=== PATIENT | female | born 1990 | race American Indian/Alaskan Native ===

== ENCOUNTER 2016-12-28 20:00 | Emergency (ER) | payer SELFPAY ==
[2016-12-28 20:32] VITALS: BP 107/64
[2016-12-28 21:13] LABS: Basophils % (Auto) 0.8 % (0.0-1.8); Eosinophils % (Auto) 2.2 % (0.0-4.3); Hematocrit 38.6 % (30.3-42.9); Hemoglobin 12.8 gm/dl (10.1-14.3); Mean Corpuscular HGB Conc 33 % (30-34); Mean Corpuscular Hemoglobin 28 pg (28-32); Mean Corpuscular Volume 83 fl (79-97); Platelet Count 314 K/mm3 (140-440); Red Blood Count 4.64 M/mm3 (3.65-5.03); Red Cell Distribution Width 14.2 % (13.2-15.2); White Blood Count 6.1 K/mm3 (4.5-11.0)
[2016-12-28 21:28] LABS: Alanine Aminotransferase 9 units/L (7-56); Albumin 4.4 g/dL (3.9-5); Albumin/Globulin Ratio 1.7 %; Alkaline Phosphatase 62 units/L (35-129); Anion Gap 18 mmol/L; BUN/Creatinine Ratio 18.57; Bilirubin,Total 0.2 mg/dL (0.1-1.2); Blood Urea Nitrogen 13 mg/dL (7-17); Calcium 9.5 mg/dL (8.4-10.2); Carbon Dioxide 25 mmol/L (22-30); Chloride 104.8 mmol/L (98-107); Glucose 92 mg/dL (65-100); Lipase 29 units/L (13-60); Potassium 4.1 mmol/L (3.6-5.0); Sodium 144 mmol/L (137-145)
[2016-12-28 23:23] LABS: Bilirubin,Urine NEG (Negative); Blood,Urine NEG (Negative); Ketones,Urine TR mg/dL (Negative); Leukocyte Esterase,Urine SM (Negative); Mucus,Urine 3+ /HPF; Nitrite,Urine NEG (Negative); Protein,Urine <15 mg/dL mg/dL (Negative); Urobilinogen,Urine < 2.0 mg/dL (<2.0)
--- NOTE | 2016-12-29 19:31 | ED Elopement Review ---
ED Pt Elopement review - Results review Lab results: Laboratory Tests 12/28/16 12/28/16 12/28/16 20:44 20:44 22:17 WBC 6.1 RBC 4.64 Hgb 12.8 Hct 38.6 MCV 83 MCH 28 MCHC 33 RDW 14.2 Plt Count 314 Lymph % (Auto) 43.4 H Simpson % (Auto) 8.8 H Eos % (Auto) 2.2 Baso % (Auto) 0.8 Lymph # 2.6 Simpson # 0.5 Eos # 0.1 Baso # 0.0 Seg Neutrophils % 44.8 Seg Neutrophils # 2.7 Sodium 144 Potassium 4.1 Chloride 104.8 Carbon Dioxide 25 Anion Gap 18 BUN 13 Creatinine 0.7 Estimated GFR > 60 BUN/Creatinine Ratio 18.57 Glucose 92 Calcium 9.5 Total Bilirubin 0.2 AST 15 ALT 9 Alkaline Phosphatase 62 Total Protein 7.0 Albumin 4.4 Albumin/Globulin Ratio 1.7 Lipase 29 Urine Color Yellow Urine Turbidity Cloudy Urine pH 5.0 Ur Specific [place] 1.030 Urine Protein <15 mg/dl Urine Glucose (UA) Neg Urine Ketones Tr Urine Blood Neg Urine Nitrite Neg Urine Bilirubin Neg Urine Urobilinogen < 2.0 Ur Leukocyte Esterase Sm Urine WBC (Auto) 10.0 H Urine RBC (Auto) 2.0 U Epithel Cells (Auto) 20.0 H Urine Mucus 3+ Urine HCG, Qual Negative - Call Back decision Pt Call Back Decision: No action required
== END 2016-12-29 05:40 | disposition left against medical advice (07) ==
LOC: ED 20:00
DX: R10.32 Left lower quadrant pain (principal); Z53.21 Procedure and treatment not carried out due to patient leaving prior to being seen by health care provider
CPT/HCPCS: 36415; 80053; 81001; 81025; 83690; 85025

== ENCOUNTER 2016-12-29 20:04 | Emergency (ER) | payer SELFPAY ==
[2016-12-29 20:15] VITALS: BP 103/62
== END 2016-12-29 20:50 | disposition left against medical advice (07) ==
LOC: ED 20:04
DX: R10.9 Unspecified abdominal pain (principal); Z53.21 Procedure and treatment not carried out due to patient leaving prior to being seen by health care provider

== ENCOUNTER 2017-05-31 07:02 | Emergency (ER) | payer SELFPAY ==
[2017-05-31] MEDS ORDERED: BOOSTRIX IM ONE (08:32)
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
[2017-05-31 09:47] LABS: Urine Drugs of Abuse Note Disclamer
[2017-05-31] MEDS ORDERED: ISOPTO TEARS 0.5% OU ONE (11:25)
[2017-05-31] MEDS ORDERED: ANCEF IM ONE (11:45)
[2017-05-31 13:03] VITALS: BP 114/65
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
== END 2017-05-31 13:14 | disposition other institution (70) ==
LOC: ED 07:02
DX: S01.111A Laceration without foreign body of right eyelid and periocular area, initial encounter (principal); W22.8XXA Striking against or struck by other objects, initial encounter; Y93.9 Activity, unspecified; Y92.9 Unspecified place or not applicable; Y99.9 Unspecified external cause status
CPT/HCPCS: 36415; 70486; 73140; 80307; 84703; 90471; 90715; 96372; 99284; G0480; J0690; 80320

== ENCOUNTER 2017-07-13 16:12 | Emergency (ER) | payer SELFPAY ==
[2017-07-13 16:31] VITALS: BP 112/66
[2017-07-13 17:02] LABS: Basophils % (Auto) 0.9 % (0.0-1.8); Eosinophils % (Auto) 1.7 % (0.0-4.3); Hematocrit 38.6 % (30.3-42.9); Hemoglobin 12.5 gm/dl (10.1-14.3); Mean Corpuscular HGB Conc 32 % (30-34); Mean Corpuscular Hemoglobin 27 pg (28-32); Mean Corpuscular Volume 85 fl (79-97); Platelet Count 376 K/mm3 (140-440); Red Blood Count 4.56 M/mm3 (3.65-5.03); Red Cell Distribution Width 14.5 % (13.2-15.2); White Blood Count 7.1 K/mm3 (4.5-11.0)
[2017-07-13 17:18] LABS: Alanine Aminotransferase 12 units/L (7-56); Albumin 4.2 g/dL (3.9-5); Albumin/Globulin Ratio 1.5 %; Alkaline Phosphatase 49 units/L (35-129); Anion Gap 17 mmol/L; Blood Urea Nitrogen 10 mg/dL (7-17); Calcium 8.8 mg/dL (8.4-10.2); Carbon Dioxide 26 mmol/L (22-30); Chloride 101.1 mmol/L (98-107); Glucose 95 mg/dL (65-100); Lipase 25 units/L (13-60); Potassium 3.9 mmol/L (3.6-5.0); Sodium 140 mmol/L (137-145)
[2017-07-13 18:07] LABS: Bilirubin,Urine NEG (Negative); Blood,Urine LG (Negative); Ketones,Urine NEG (Negative); Leukocyte Esterase,Urine TR (Negative); Mucus,Urine 3+ /HPF; Nitrite,Urine NEG (Negative); Urobilinogen,Urine < 2.0 mg/dL (<2.0)
== END 2017-07-13 20:35 | disposition left against medical advice (07) ==
LOC: ED 16:12
DX: M54.5 Low back pain (principal); Z53.21 Procedure and treatment not carried out due to patient leaving prior to being seen by health care provider
CPT/HCPCS: 36415; 80053; 81001; 83690; 85025

== ENCOUNTER 2018-04-23 14:28 | Emergency (ER) | payer SELFPAY ==
[2018-04-23 14:36] VITALS: BP 105/70
[2018-04-23 15:22] LABS: Bacteria,Urine 1+ /HPF (Negative); Bilirubin,Urine NEG (Negative); Blood,Urine NEG (Negative); Color,Urine Yellow (Yellow); Mucus,Urine 1+ /HPF; Protein,Urine <15 mg/dL mg/dL (Negative); Urobilinogen,Urine < 2.0 mg/dL (<2.0)
[2018-04-23 15:33] LABS: HCG Qualitative,Urine Negative (Negative)
--- NOTE | 2018-04-23 15:49 | Emergency Department Report ---
ED Female HPI - General Chief complaint: Urogenital-Female Stated complaint: ABD PAIN, VOMITTING AND BURNING ITCHING IN VAGINA Time Seen by Provider: 04/23/18 15:38 Source: patient Mode of arrival: Ambulatory Limitations: No Limitations - History of Present Illness Complaint: dysuria, pelvic pain -: week(s) Radiation: suprapubic Quality: burning Improves with: none Worsens with: urination Associated Symptoms: denies: vaginal discharge, vaginal bleeding - Related Data Home Medications Medication Instructions Recorded Confirmed Last Taken No Known Home Medications [No 05/31/17 05/31/17 Unknown Reported Home Medications] Allergies Allergy/AdvReac Type Severity Reaction Status Date / Time No Known Allergies Allergy Verified 05/31/17 11:26 ED Review of Systems ROS: Stated complaint: ABD PAIN, VOMITTING AND BURNING ITCHING IN VAGINA Other details as noted in HPI Comment: All other systems reviewed and negative Constitutional: denies: chills, fever Cardiovascular: denies: chest pain, palpitations Genitourinary: urgency, dysuria, frequency. denies: discharge Neurological: denies: headache, weakness ED Past Medical Hx - Past Medical History Hx Hypertension: No Hx Diabetes: No Hx Deep Vein Thrombosis: No Hx Renal Disease: No Hx Sickle Cell Disease: No Hx Seizures: No Hx Asthma: No Hx HIV: No Additional medical history: endometriosis - Surgical History Past Surgical History?: No - Social History Smoking Status: Never Smoker Substance Use Type: None - Medications Home Medications: Home Medications Medication Instructions Recorded Confirmed Last Taken Type No Known Home Medications [No 05/31/17 05/31/17 Unknown History Reported Home Medications] ED Physical Exam - General Limitations: No Limitations General appearance: alert, in no apparent distress - Head Head exam: Present: atraumatic, normocephalic, normal inspection - ENT ENT exam: Present: normal exam, mucous membranes moist - Neck Neck exam: Present: normal inspection, full ROM. Absent: tenderness, meningismus, lymphadenopathy, thyromegaly - Respiratory Respiratory exam: Present: normal lung sounds bilaterally - Cardiovascular Cardiovascular Exam: Present: regular rate, normal rhythm, normal heart sounds - GI/Abdominal GI/Abdominal exam: Present: soft, normal bowel sounds. Absent: distended, tenderness, guarding, rebound, rigid, mass, bruit, pulsatile mass - Extremities Exam Extremities exam: Present: normal inspection, full ROM, normal capillary refill - Neurological Exam Neurological exam: Present: alert, oriented X3, CN II-XII intact, normal gait - Skin Skin exam: Present: warm, intact, normal color ED Course Vital Signs 04/23/18 14:32 Temperature 98.5 F Pulse Rate 104 H Respiratory 16 Rate Blood Pressure 105/70 O2 Sat by Pulse 99 Oximetry Critical care attestation.: If time is entered above; I have spent that time in minutes in the direct care of this critically ill patient, excluding procedure time. ED Disposition Clinical Impression: Dysuria Disposition: DC-01 TO HOME OR SELFCARE Is pt being admited?: No Condition: Stable Instructions: Urinary Tract Infection in Women (ED), Dysuria (ED) Referrals: PRIMARY CARE, [Primary Care Provider] - 3-5 Days
== END 2018-04-23 16:04 | disposition home or self-care (01) ==
LOC: ED 14:28
DX: R30.0 Dysuria (principal); R10.2 Pelvic and perineal pain
CPT/HCPCS: 81001; 81025; 99283

== ENCOUNTER 2019-05-05 19:45 | Emergency (ER) | payer MEDICAID ==
[2019-05-05 20:46] LABS: Basophils % (Auto) 0.6 % (0.0-1.8); Eosinophils # (Auto) 0.1 K/mm3 (0.0-0.4); Hematocrit 35.9 % (30.3-42.9); Hemoglobin 12.3 gm/dl (10.1-14.3); Lymphocytes # (Auto) 2.5 K/mm3 (1.2-5.4); Lymphocytes % (Auto) 39.5 % (13.4-35.0); Mean Corpuscular HGB Conc 34 % (30-34); Mean Corpuscular Volume 82 fl (79-97); Monocytes # (Auto) 0.7 K/mm3 (0.0-0.8); Platelet Count 398 K/mm3 (140-440); Red Blood Count 4.36 M/mm3 (3.65-5.03); Red Cell Distribution Width 13.6 % (13.2-15.2)
[2019-05-05 20:54] LABS: Bilirubin,Urine NEG (Negative); Blood,Urine SM (Negative); Color,Urine Yellow (Yellow); Protein,Urine <15 mg/dL mg/dL (Negative); RBC,Urine < 1.0 /HPF (0.0-6.0); Urobilinogen,Urine < 2.0 mg/dL (<2.0); WBC,Urine < 1.0 /HPF (0.0-6.0)
--- NOTE | 2019-05-05 23:09 | Ultrasound Report ---
ULTRASOUND OBSTETRIC INDICATION: Vaginal bleeding. Clinical gestational age of 9 weeks, 3 days. TECHNIQUE: Transabdominal and Transvaginal. COMPARISON: None available. FINDINGS: GESTATIONAL SAC: Well-defined oval shape and intrauterine in location. YOLK SAC: No significant abnormality. EMBRYO/FETUS: No significant abnormality. - [place]-Rump Length = 2.69 cm = 9 weeks, 3 day(s). - Heart Rate = 179 beats per minute. ADNEXA: The right ovary is normal in size and appearance. There is an indeterminate hypoechoic solid structure in the left ovary measuring 1.8 x 1.9 x 2.0 cm with minimal internal color flow. Otherwise, the left ovary is unremarkable. FREE FLUID: None. ADDITIONAL FINDINGS: None. IMPRESSION: 1. Single, living intrauterine with estimated sonographic age of 9 weeks, 3 day(s). 2. Indeterminate left ovarian solid lesion as above. A follow-up pelvic ultrasound in 6 weeks is william casey. 3. No other acute findings. Signer Name: Basil Matthews MD Signed: 05/05/2019 11:05 PM Workstation Name: [id number]
--- NOTE | 2019-05-05 23:09 | Ultrasound Report ---
ULTRASOUND OBSTETRIC INDICATION: Vaginal bleeding. Clinical gestational age of 9 weeks, 3 days. TECHNIQUE: Transabdominal and Transvaginal. COMPARISON: None available. FINDINGS: GESTATIONAL SAC: Well-defined oval shape and intrauterine in location. YOLK SAC: No significant abnormality. EMBRYO/FETUS: No significant abnormality. - [place]-Rump Length = 2.69 cm = 9 weeks, 3 day(s). - Heart Rate = 179 beats per minute. ADNEXA: The right ovary is normal in size and appearance. There is an indeterminate hypoechoic solid structure in the left ovary measuring 1.8 x 1.9 x 2.0 cm with minimal internal color flow. Otherwise, the left ovary is unremarkable. FREE FLUID: None. ADDITIONAL FINDINGS: None. IMPRESSION: 1. Single, living intrauterine with estimated sonographic age of 9 weeks, 3 day(s). 2. Indeterminate left ovarian solid lesion as above. A follow-up pelvic ultrasound in 6 weeks is william casey. 3. No other acute findings. Signer Name: Basil Matthews MD Signed: 05/05/2019 11:05 PM Workstation Name: [id number]
--- NOTE | 2019-05-05 23:27 | Emergency Department Report ---
ED HPI - General Chief complaint: Vaginal Bleeding Stated complaint: 9WEEKS PREG/ BLEEDING Time Seen by Provider: 05/05/19 20:24 Source: patient Mode of arrival: Ambulatory Limitations: No Limitations - History of Present Illness Initial comments: This is a 28-year-old female nontoxic, well nourished in appearance, no acute signs of distress presents to the ED with c/o of vaginal bleeding x1 day. Patient stated that she did follow up with a [facility] [employer] SUPERVISOR today and had a normal exam. Patient stated that symptoms of vaginal bleeding has resolved since coming to the ED. Patient denies any abdominal or pelvic pain. Patient denies any vaginal discharge or foul odor. Patient denies any nausea, vomiting, chest pain, shortness of breathe, fever, chills, headache, stiff neck, numbness, tingling. Patient denies any urinary symptoms. Patient denies any allergies or significant PMH. MD Complaint: vaginal bleeding -: days(s) Radiation: none Severity scale (0 -10): 0 Improves with: none Worsens with: none Associated symptoms: vaginal bleeding. denies: nausea/vomiting, vaginal discharge, abdominal pain, dysuria, headache, vision changes, malaise, dysparuenia, rash, seizure, shortness of breath, syncope, weakness Vaginal bleeding: light :: Yes Number of weeks : 9 Pre-jolene care: followed by OB - Related Data Previous Rx's Medication Instructions Recorded Last Taken Type Ciprofloxacin HCl [Ciprofloxacin 500 mg PO Q12H #14 tab 04/23/18 Unknown Rx TAB] Phenazopyridine [Pyridium] 200 mg PO TID #6 tab 04/23/18 Unknown Rx Allergies Allergy/AdvReac Type Severity Reaction Status Date / Time No Known Allergies Allergy Verified 05/31/17 11:26 ED Review of Systems ROS: Stated complaint: 9WEEKS PREG/ BLEEDING Other details as noted in HPI Constitutional: denies: chills, fever Eyes: denies: eye pain, eye discharge, vision change ENT: denies: ear pain, throat pain Respiratory: denies: cough, shortness of breath, wheezing Cardiovascular: denies: chest pain, palpitations Endocrine: no symptoms reported Gastrointestinal: denies: abdominal pain, nausea, diarrhea Genitourinary: abnormal menses. denies: urgency, dysuria, discharge Musculoskeletal: denies: back pain, joint swelling, arthralgia Skin: denies: rash, lesions Neurological: denies: headache, weakness, paresthesias Psychiatric: denies: anxiety, depression Hematological/Lymphatic: denies: easy bleeding, easy bruising ED Past Medical Hx - Past Medical History Previous Medical History?: Yes Hx Hypertension: No Hx Diabetes: No Hx Deep Vein Thrombosis: No Hx Renal Disease: No Hx Sickle Cell Disease: No Hx Seizures: No Hx Asthma: No Hx HIV: No Additional medical history: endometriosis - Surgical History Past Surgical History?: No - Social History Smoking Status: Never Smoker Substance Use Type: None - Medications Home Medications: Home Medications Medication Instructions Recorded Confirmed Last Taken Type Ciprofloxacin HCl [Ciprofloxacin 500 mg PO Q12H #14 tab 04/23/18 Unknown Rx TAB] Phenazopyridine [Pyridium] 200 mg PO TID #6 tab 04/23/18 Unknown Rx ED Physical Exam - General Limitations: No Limitations General appearance: alert, in no apparent distress - Head Head exam: Present: atraumatic, normocephalic - Neck Neck exam: Present: normal inspection, full ROM. Absent: tenderness, men ingismus, lymphadenopathy - GI/Abdominal GI/Abdominal exam: Present: soft, normal bowel sounds. Absent: distended, tenderness, guarding, rebound, rigid, diminished bowel sounds - Extremities Exam Extremities exam: Present: normal inspection, full ROM - Back Exam Back exam: Present: normal inspection, full ROM. Absent: tenderness, CVA tenderness (R), CVA tenderness (L), muscle spasm, paraspinal tenderness, vertebral tenderness, rash noted - Neurological Exam Neurological exam: Present: alert, oriented X3, normal gait - Psychiatric Psychiatric exam: Present: normal affect, normal mood - Skin Skin exam: Present: warm, dry, intact, normal color. Absent: rash ED Course Vital Signs 05/05/19 20:02 Temperature 98.0 F Pulse Rate 83 Respiratory 18 Rate Blood Pressure 116/77 O2 Sat by Pulse 100 Oximetry - Reevaluation(s) Reevaluation #1: 05/05/19 23:26 Patient is speaking in full sentences with no signs of distress noted. ED Medical Decision Making - Lab Data Result diagrams: 05/05/19 20:29 - Medical Decision Making This is a 28-year-old female presents with threatened miscarriage. Patient is stable and was examined by me. Normal abdominal exam. US OB obtained and dictated by the radiologist within normal limits. Ua obtained. Quantative serum test obtained. Patient notified of the US report with no questions noted by the patient. Patient was instructed f/u with [facility] [employer] [facility] in 3-5 days. RH factor positive. Labs within normal limits. At time of discharge, the patient does not seem toxic or ill in appearance. No acute signs of distress noted. Patient agrees to discharge treatment plan of care. No further questions noted by the patient. Critical care attestation.: If time is entered above; I have spent that time in minutes in the direct care of this critically ill patient, excluding procedure time. ED Disposition Clinical Impression: Threatened miscarriage Disposition: DC- TO HOME OR SELFCARE Is pt being admited?: No Does the pt Need Aspirin: No Condition: Stable Instructions: Threatened Miscarriage (ED) Additional Instructions: Follow-up with a [employer] [employer] doctor in 3-5 days or if symptoms worsen and continue return to emergency room as soon as possible. Referrals: [facility] [Primary Care Provider] - 3-5 Days PRIMARY [facility] [Referring] - 3-5 Days HENRY ALBERTO MD [Staff Physician] - 3-5 Days [facility] [Provider Group] - 3-5 Days Forms: Work/School Release Form(ED)
[2019-05-06 00:52] VITALS: BP 105/68
== END 2019-05-05 23:33 | disposition home or self-care (01) ==
LOC: ED 19:45
DX: O20.0 Threatened abortion (principal); Z3A.09 9 weeks gestation of pregnancy
CPT/HCPCS: 36415; 76801; 76817; 81001; 84702; 85025; 86900; 86901